=== PATIENT | female | born 2000 | race African-American/Black ===

== ENCOUNTER 2024-05-02 12:22 | Emergency (ER) | payer OTHER ==
[~2024-05-02] VITALS: Ht 165.1 cm; Wt 70.0 kg
[2024-05-02] MEDS: HALOPERIDOL LACTATE 5MG/ML VIAL IM STA (12:40)
[2024-05-02] MEDS: DIPHENHYDRAMINE 50MG/ML VIAL IM STA (12:40)
[2024-05-02] MEDS: MIDAZOLAM HCL 2 MG/2 ML VIAL IM ONE (12:45)
[2024-05-02 13:09] LABS: BASOPHILS % 0.4 % (0.0-2.0); EOSINOPHILS % 0.1 % (0.0-5.0); HEMATOCRIT. 27.4 % (36.0-48.0); HEMOGLOBIN. 7.7 g/dL (12.0-16.0); LYMPHOCYTES % 36.6 % (20.0-50.0); MEAN CORPUSCULAR HEMOGLOBIN 16.5 pg (28.0-32.0); MEAN CORPUSCULAR HGB CONC 28.1 g/dL (31.0-37.0); MEAN CORPUSCULAR VOLUME 58.6 fL (81.0-99.0); MEAN PLATELET VOLUME 8.5 fl (7.4-10.4); MONOCYTES % 9.3 % (2.0-8.0); NEUTROPHILS % 53.6 % (40.0-76.0); PLATELET 168 x1000/uL (130-400); RED BLOOD CELL COUNT 4.68 mill/uL (4.2-5.4); RED CELL DISTRIBUTION WIDTH 22.4 % (11.6-14.6)
[2024-05-02 13:11] LABS: ADD RBC MORPHOLOGY YES; DIFFERENTIAL COMMENT 1
[2024-05-02 13:20] LABS: CALCIUM 9.6 mg/dL (8.7-10.4); CARBON DIOXIDE 25 mEq/L (21-32); CHLORIDE 108 mEq/L (98-107); POTASSIUM 3.6 mEq/L (3.5-5.1); SODIUM 140 mEq/L (136-145)
[2024-05-02 13:23] LABS: HCG SCREEN NEGATIVE
[2024-05-02 13:25] LABS: CREATININE 0.6 mg/dL (0.6-1.0)
[2024-05-02 13:26] LABS: GLUCOSE 93 mg/dL (70-105); UREA NITROGEN BLOOD 10 mg/dL (9-23)
[2024-05-02 13:27] LABS: ACETAMINOPHEN < 2 ug/mL (10-30)
[2024-05-02 13:31] LABS: ETHANOL BLOOD < 10 mg/dL (<10)
[2024-05-02 15:33] LABS: ANISOCYTOSIS 3+; HYPOCHROMASIA 2+; MICROCYTOSIS 4+; PLATELET ESTIMATE NORMAL
[2024-05-02 15:35] VITALS: O2SAT 98
[2024-05-03 17:07] LABS: CLARITY URINE CLEAR (CLEAR); COLOR URINE YELLOW (YELLOW); GLUCOSE URINE NEGATIVE (NEGATIVE); KETONES URINE 2+ (NEGATIVE); LEUKOCYTE ESTERASE URINE 1+ (NEGATIVE); NITRITE URINE NEGATIVE (NEGATIVE); OCCULT BLOOD URINE NEGATIVE (NEGATIVE); PH URINE 7.5 (4.5-8.0); PROTEIN URINE TRACE (NEGATIVE); SPECIFIC GRAVITY URINE 1.028 (1.005-1.030)
[2024-05-03 17:14] LABS: *AMPHETAMINES SCREEN URINE NEGATIVE (NEGATIVE); *BARBITURATES SCREEN URINE NEGATIVE (NEGATIVE); *BENZODIAZEPINES SCREEN URINE PRESUMPTIVE POSITIVE (NEGATIVE); *COCAINE SCREEN URINE NEGATIVE (NEGATIVE); METHADONE URINE SCREEN NEGATIVE (NEGATIVE); OPIATES URINE SCREEN NEGATIVE (NEGATIVE)
[2024-05-03 17:15] LABS: CANNABINOID URINE SCREEN PRESUMPTIVE POSITIVE (NEGATIVE); ECSTASY MDMA SCREEN URINE NEGATIVE (NEGATIVE); PHENCYCLIDINE URINE SCREEN NEGATIVE (NEGATIVE)
[2024-05-03 17:21] LABS: BACTERIA URINE 2+; RBC URINE 0-2 /hpf (0-2); SQUAMOUS EPITHELIAL CELL URINE 1+ /lpf (RARE/1+)
[2024-05-03] MEDS: QUETIAPINE FUMARATE 50MG TABLET PO SCH (21:15)
[2024-05-04] MEDS: OLANZAPINE 10 MG/VIAL IM ONE (12:58)
[2024-05-04 17:39] VITALS: BP 126/78; PULSE 70; RESP 16; TEMP 36.83628; O2SAT 100
== END 2024-05-04 17:57 ==
LOC: EDBD 12:22 → ER 12:22
DX: F29 Unspecified psychosis not due to a substance or known physiological condition (principal)
CPT/HCPCS: 80305; 80048; 81003; 80307; 80329; 80320; 84703; 85025; 36415; 96372 ×2; 99291; 87426; J1200; J1630; J2250; Z7610 ×4; J3490; G0480